=== PATIENT | female | born 1980 | race Caucasian/White ===

== ENCOUNTER 2016-05-09 14:37 | Emergency (ER) | payer MEDICAID ==
[2016-05-09] MEDS ORDERED: DIVALPROEX DR 250 MG TAB PO ONE (15:35)
== END 2016-05-09 17:42 | disposition home or self-care (01) ==
LOC: ER 14:37
DX: R56.9 Unspecified convulsions (principal); Z76.0 Encounter for issue of repeat prescription; N30.90 Cystitis, unspecified without hematuria; F15.10 Other stimulant abuse, uncomplicated
CPT/HCPCS: 36415; 80053; 80165; 80307; 81001; 84439; 84443; 85025; 87088